=== PATIENT | male | born 1985 | race Caucasian/White ===

== ENCOUNTER 2016-07-03 22:32 | Emergency (ER) | payer OTHER ==
[2016-07-03 22:59] VITALS: BP 140/90; PULSE 90; TEMP 98; BMI 37.6
--- NOTE | 2016-07-04 00:31 | PDOC ---
History of Present Illness - General History Source: Patient Exam Limitations: No Limitations - History of Present Illness Initial Comments: 07/04/16 00:47 The patient is a 30 year old male with significant past medical history of hypertension and diabetes who presents to the ED with back pain s/p mechanical fall today. Patient reports he was exercising when he accidentally fell down onto the concrete floor and broke his fall with his right hand. No head trauma to LOC. He has complaints of back pain that is sharp, nonradiating and 8/10. Denies numbness/tingling down the legs or bladder/bowel incontinence. He also reports generalized weakness and headaches. Denies dizziness, changes in vision , nausea, or vomiting. The patient denies fever, chills, cough, SOB, chest pain, and abdominal pain, and diarrhea. <Alison Shrestha - Last Filed: 07/04/16 00:47> - General History Source: Patient <ClydeCayetano pulliam - Last Filed: 07/04/16 02:31> - General Chief Complaint: Injury Stated Complaint: INJURY Time Seen by Provider: 07/03/16 23:46 Past History <Alison Shrestha - Last Filed: 07/04/16 00:47> - Psycho/Social/Smoking Cessation Hx Suicidal Ideation: No Smoking History: Current every day smoker Information on smoking cessation initiated: No <Cayetano Adams - Last Filed: 07/04/16 02:31> - Past Medical History Allergies/Adverse Reactions: Allergies Allergy/AdvReac Type Severity Reaction Status Date / Time No Known Allergies Allergy Verified 07/03/16 22:56 Home Medications: Ambulatory Orders Clotrimazole [Lotrimin AF] 24 gm TP TID #1 cream..g. 07/04/16 Ibuprofen 800 mg PO TID #30 tablet 07/04/16 Phenyleph/Mineral Oil/Petrolat [Preparation H Ointment] 28 gm RC TID #1 oint.appl 07/04/16 Review of Systems - Review of Systems Able to Perform ROS?: Yes Comments:: 07/04/16 00:47 CONSTITUTIONAL: +generalized weakness Absent: fever, no chills, no fatigue EYES: Absent: visual changes ENT: Absent: ear pain, no sore throat CARDIOVASCULAR: Absent: chest pain, no palpitations RESPIRATORY: Absent: cough, no SOB GI: Absent: abdominal pain, no nausea, no vomiting, no constipation, no diarrhea GENITOURINARY: Absent: dysuria, no frequency, no hematuria MUSCULOSKELETAL: +back pain Absent: no arthralgia, no myalgia SKIN: Absent: rash NEURO: +headache <Alison Shrestha - Last Filed: 07/04/16 00:47> *Physical Exam - Vital Signs Last Vital Signs Temp Pulse Resp BP Pulse Ox 98 F 90 22 140/90 99 07/03/16 22:58 07/03/16 22:58 07/03/16 22:58 07/03/16 22:58 07/03/16 22:58 - Physical Exam Comments: 07/04/16 00:47 GENERAL: Well-appearing, well-nourished. No apparent distress. HEENT: Normocephalic, atraumatic. PERRL, EOM intact. CARDIOVASCULAR: Normal S1, S2. Regular rate and rhythm. PULMONARY: Clear to auscultation bilaterally. ABDOMEN: Soft, non-distended, non-tender. EXTREMITIES: Normal ROM in all four extremities. No gross deformities. SKIN: Warm, dry. No rash NEUROLOGICAL: No focal neurological deficits. <Alison Shrestha - Last Filed: 07/04/16 00:47> - Vital Signs Last Vital Signs Temp Pulse Resp BP Pulse Ox 98 F 90 22 140/90 99 07/03/16 22:58 07/03/16 22:58 07/03/16 22:58 07/03/16 22:58 07/03/16 22:58 <Cayetano Adams - Last Filed: 07/04/16 02:31> ED Treatment Course - Medications Given in the ED: ED Medications Discontinued Medications Generic Name Dose Route Start Last Admin Trade Name Freq PRN Reason Stop Dose Admin Ibuprofen 800 mg 07/04/16 00:32 07/04/16 00:39 Motrin - PO 07/04/16 00:33 Not Given ONCE STA <Alison Shrestha - Last Filed: 07/04/16 00:47> Medical Decision Making - Medical Decision Making 07/04/16 02:23 Dr. Adams: The scribe's documentation has been prepared under my direction and personally reviewed by me in its entirery. I confirm that the note above accurately reflects all work, treatment, procedures, and medical decision making performed by me. <Cayetano Adams - Last Filed: 07/04/16 02:31> *DC/Admit/Observation/Transfer - Attestations Scribe Attestion: 07/04/16 00:47 Documentation prepared by Alison Shrestha, acting as medical billing coder for Cayetano Adams MD <Alison Shrestha - Last Filed: 07/04/16 00:47> <Cayetano Adams - Last Filed: 07/04/16 02:31> Diagnosis at time of Disposition: Wrist sprain Qualifiers: Encounter type: initial encounter Laterality: right Qualified Code(s): S63.501A - Unspecified sprain of right wrist, initial encounter Knee contusion Qualifiers: Encounter type: initial encounter Laterality: right Qualified Code(s): S80.01XA - Contusion of right knee, initial encounter - Discharge Dispostion Disposition: HOME Condition at time of disposition: Stable - Patient Instructions Printed Discharge Instructions: DI for Wrist Sprain, DI for Knee Pain
[2016-07-04] MEDS ORDERED: IBUPROFEN 600 MG TABLET (FP) PO STA (00:32)
[2016-07-04] MEDS ORDERED: IBUPROFEN 400 MG TABLET (FP) PO ONE (00:37)
== END 2016-07-04 03:05 | disposition home or self-care (01) ==
LOC: JER 22:32
DX: S63.501A Unspecified sprain of right wrist, initial encounter (principal); S80.01XA Contusion of right knee, initial encounter; W17.89XA Other fall from one level to another, initial encounter; Y93.B9 Activity, other involving muscle strengthening exercises; Y92.89 Other specified places as the place of occurrence of the external cause; Y99.8 Other external cause status
CPT/HCPCS: 72100-TC; 73110-TC-RT; 73130-TC-RT; 73562-TC-RT; 99281-25